=== PATIENT | female | born 1990 | race Caucasian/White ===

== ENCOUNTER 2023-03-04 21:15 | Emergency (ER) | payer OTHER ==
[~2023-03-04] VITALS: Ht 162.6 cm; Wt 79.4 kg
[~2023-03-04 21:15] MED LIST: PERCOCET 5/3251 TAB PO; PRENATAL CAPLE1 EACH PO
[2023-03-04] MEDS ORDERED: SIMVASTATIN10 MG PO (21:47)
[2023-03-04] MEDS ORDERED: OMEPRAZOLE20 MG PO (21:47)
[2023-03-04 22:29] LABS: HEMATOCRIT 39.3 % (36.0-45.00); HEMOGLOBIN 13.2 g/dL (12.0-15.00); MEAN CELL VOLUME 87.6 fL (80.00-100.00); MEAN CORPUSCULAR HEMOGLOBIN 29.5 pg (27.00-32.0); MEAN CORPUSCULAR HGB CONC 33.7 g/dl (32.0-36.0); PLATELET COUNT 250 K/uL (150-450); RED BLOOD COUNT 4.49 M/uL (4.00-6.00); RED CELL DISTRIBUTION WIDTH 13.4 % (11.5-14.5)
[2023-03-04 22:31] LABS: PH,URINE 6.5 (5.0-8.0); URINE APPEARANCE Clear; URINE BILIRRUBIN Negative (NEGATIVE); URINE BLOOD Small; URINE COLOR Yellow; URINE GLUCOSE Negative (NEGATIVE); URINE LEUKOCYTE Negative; URINE NITRATE Negative; URINE PROTEIN Negative (NEGATIVE)
[2023-03-04 22:32] LABS: URINE BACTERIA 210.4 uL (0.0-1933); URINE EPITHELIAL CELLS 19.6 uL (0.0-38.8); URINE RBC 8.3 uL (0.0-20.8); URINE WBC 11.5 uL (0.0-23.2)
== END 2023-03-04 23:51 | disposition home or self-care (01) ==
LOC: ER 21:15
PROVIDERS: General Practice
DX: O20.8 Other hemorrhage in early pregnancy (principal); Z3A.01 Less than 8 weeks gestation of pregnancy; Z88.2 Allergy status to sulfonamides

== ENCOUNTER → 2023-03-16 09:40 | Outpatient (CLI) | payer OTHER ==
[~2023-03-16 09:40] MED LIST changes: +OMEPRAZOLE20 MG PO; +SIMVASTATIN10 MG PO
== END | disposition home or self-care (01) ==
LOC: PRENATAL 09:40
PROVIDERS: ATTEND Obstetrics & Gynecology Maternal & Fetal Medicine
DX: O36.80X0 Pregnancy with inconclusive fetal viability, not applicable or unspecified (principal); O26.859 Spotting complicating pregnancy, unspecified trimester; Z3A.01 Less than 8 weeks gestation of pregnancy